=== PATIENT | male | born 1990 | race African-American/Black ===

== ENCOUNTER 2017-11-28 12:35 | Emergency (ER) | payer SELFPAY ==
[2017-11-28 13:11] LABS: ADD MAN DIFF? NO
[2017-11-28 13:13] LABS: BASO # 0.2 x10^3/uL (0.0-0.2); BASO % 4 % (0-3); EOS # 0.1 x10^3/uL (0.0-0.7); EOS % 1 % (0-3); HEMOGLOBIN 15.8 g/dL (13.0-17.5); LYMPH # 1.6 x10^3/uL (1.0-4.8); LYMPH % 28 % (24-48); MEAN CORPUSCULAR HEMOGLOBIN 31 pg (25-35); MEAN CORPUSCULAR HGB CONC 34 g/dL (31-37); MEAN CORPUSCULAR VOLUME 94 fL (79-100); MONO # 0.5 x10^3/uL (0.0-1.1); MONO % 9 % (0-9); NEUT # 3.3 x10^3uL (1.8-7.7); NEUT % 59 % (31-73); PLATELET COUNT 179 x10^3/uL (140-400); RED BLOOD COUNT 5.01 x10^6/uL (4.30-5.70); RED CELL DISTRIBUTION WIDTH 13.7 % (11.5-14.5); WHITE BLOOD COUNT 5.6 x10^3/uL (4.0-11.0)
[2017-11-28 13:32] LABS: ANION GAP 9 (6-14); BLOOD UREA NITROGEN 16 mg/dL (8-26); BUN/CREATININE RATIO 11 (6-20); CALCIUM 9.9 mg/dL (8.5-10.1); CARBON DIOXIDE 30 mmol/L (21-32); CHLORIDE 96 mmol/L (98-107); CREATININE 1.4 mg/dL (0.7-1.3); GFR 73.6; GLUCOSE 68 mg/dL (70-99); POTASSIUM 3.7 mmol/L (3.5-5.1); SODIUM 135 mmol/L (136-145)
[2017-11-28 13:37] LABS: ALBUMIN 4.1 g/dL (3.4-5.0); ALBUMIN/GLOBULIN RATIO 0.8 (1.0-1.7); ALK PHOS 77 U/L (46-116); ALT (SGPT) 27 U/L (16-63); AST (SGOT) 24 U/L (15-37); CREATINE KINASE 399 U/L (39-308); TOTAL BILIRUBIN 0.5 mg/dL (0.2-1.0); TOTAL PROTEIN 9.3 g/dL (6.4-8.2)
[2017-11-28] MEDS: IV NORMAL SALINE 1000ML BAG 1,000 ML IV (13:37)
== END 2017-11-28 14:45 | disposition home or self-care (01) ==
LOC: ER 12:35
DX: R25.2 Cramp and spasm (principal); F17.200 Nicotine dependence, unspecified, uncomplicated
CPT/HCPCS: 36415; 80053; 82550; 85025; 99284; J7030